=== PATIENT | female | born 1970 | race Caucasian/White ===

== ENCOUNTER → 2016-10-20 | Outpatient (CLI) | payer OTHER ==
[~2016-10-20] MED LIST: IMITREX100 MG PO; NEURONTIN800 MG PO; PRILOSEC OTC20 MG PO; TRAMADOL HCL50 MG PO
== END ==
LOC: US 12:20
DX: N92.0 Excessive and frequent menstruation with regular cycle (principal); N94.6 Dysmenorrhea, unspecified
CPT/HCPCS: 76830